=== PATIENT | male | born 1930 | race Hispanic/Latino ===

== ENCOUNTER 2017-03-13 22:18 | Inpatient (IN) | payer BC, MEDICARE ==
[2017-03-13 22:19] VITALS: BMI 25.8
--- NOTE | 2017-03-13 22:20 | ED PDOC ---
Arrival/HPI - General Time Seen by Provider: 03/13/17 22:19 Historian: Patient, EMS - History of Present Illness Narrative History of Present Illness (Text): 03/13/17 22:19 Matheus Patel is an 86 year old male, whose past medical history includes hypertension, dyslipidemia, seizure disorder, s/p NEEDLE GRADER shunt, CAD, and aortic stenosis, who presents to the Emergency department brought in by EMS for fever. As per EMS, patient had a fever with associated weakness and generalized malaise for the past few days. Patient denies any chills, chest pain, shortness of breath, nausea, vomiting, diarrhea, urinary symptoms, back pain, neck pain, headache, dizziness, or any other complaints. PMD: Dr. Vasyl Monet Time/Duration: Other (tonight) Symptom Onset: Gradual Symptom Course: Unchanged Activities at Onset: Rest, Light Context: Home Past Medical History - Provider Review Nursing Documentation Reviewed: Yes - Infectious Disease Hx of Infectious Diseases: None - Tetanus Immunization Tetanus Immunization: Unknown - Cardiac Hx Cardiac Disorders: Yes Hx Congestive Heart Failure: No Hx Hypertension: Yes - Pulmonary Hx Chronic Obstructive Pulmonary Disease (COPD): No - Neurological HX Cerebrovascular Accident: No - HEENT Hx HEENT Disorder: Yes (wears glasses) Hx Blind: No Hx Cataracts: No Hx Deafness: No Hx Difficulty Chewing: No Hx Epistaxis: No Hx Glaucoma: No Hx Macular Degeneration: No Other/Comment: has dental implants. Has dental implants - Renal Hx Renal Failure: No - Endocrine/Metabolic Hx Diabetes Mellitus Type 1: No Hx Diabetes Mellitus Type 2: No Hx Hypothyroidism: No - Hematological/Oncological Hx Blood Disorders: No Hx AIDS: No Hx Anemia: No Hx Cancer: No Hx Chemotherapy: No Hx Cirrhosis: No Hx Hemophilia: No Hx Hepatitis A: No Hx Hepatitis B: No Hx Hepatitis C: No Hx Metastasis: No Hx Shingles: No Hx Sickle Cell Disease: No Hx Unexplained Bleeding: No - Integumentary Hx Dermatological Disorder: No Hx Basal Cell Carcinoma: No Hx Eczema: No Hx Melanoma: No Hx Psoriasis: No Hx Squamous Cell Carcinoma: No - Musculoskeletal/Rheumatological 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) - Gastrointestinal Hx Gastrointestinal Disorders: Yes (frequent diarrhea) Hx Colostomy: No Hx Crohn's Disease: No Hx Diverticulitis: No Hx Gall Bladder Disease: No Hx Gastroesophageal Reflux: Yes Hx Gastrointestinal Ulcer: No Hx Ileostomy: No Hx Liver Failure: No Hx Pancreatitis: No HX Swallowing Problems: No - Genitourinary/Gynecological Hx Genitourinary Disorders: No Hx Hematuria: No Hx Incontinence: No Hx Prostate Problems: No Hx Sexually Transmitted Diseases: No Hx Urinary Tract Infection: No - Psychiatric Hx Psychophysiologic Disorder: Yes Hx Anxiety: No Hx Bipolar Disorder: No Hx Depression: Yes Hx Emotional Abuse: No Hx Hallucinations: No Hx Panic Disorder: No Hx Post Traumatic Stress Disorder: No Hx Psychosis: No Hx Physical Abuse: No Hx Schizophrenia: No Hx Sexual Abuse: No Hx Substance Use: No - Surgical History Hx Amputation: No Hx Appendectomy: No Hx Cardiac Catheterization: No Hx Cholecystectomy: No Hx Coronary Stent: No Hx Gastric Bypass Surgery: No Hx Hysterectomy: No Hx Joint Replacement: No Hx Kidney Transplant: No Hx Liver Transplant: No Hx Mastectomy: No Hx Musculoskeletal Surgery: No Hx Open Heart Surgery: No Hx Orthopedic Surgery: No Hx Splenectomy: No Hx Valve Replacement: No - Anesthesia Hx Anesthesia: Yes Hx Anesthesia Reactions: No Hx Malignant Hyperthermia: No - Suicidal Assessment Feels Threatened In Home Enviroment: No Family/Social History - Physician Review Nursing Documentation Reviewed: Yes Family/Social History: No Known Family HX Smoking Status: Former Smoker Hx Alcohol Use: No Hx Substance Use: No Allergies/Home Meds Allergies/Adverse Reactions: Allergies atorvastatin Allergy (Verified 03/13/17 22:24) FATIGUE Home Medications: Home Meds Medication Instructions Recorded Confirmed Amlodipine Besylate 2.5 mg PO DAILY 01/13/14 03/13/17 Aspirin 81 mg PO DAILY 01/13/14 03/13/17 Carbamazepine [Tegretol] 100 mg PO BID 01/13/14 03/13/17 Ezetimibe [Zetia] 10 mg PO DAILY 01/13/14 03/13/17 Rosuvastatin Calcium [Crestor] 10 mg PO DAILY 01/13/14 03/13/17 Trazodone Hydrochloride [Trazodone 50 mg PO HS 01/13/14 03/13/17 HCl] Review of Systems - Physician Review All systems were reviewed & negative as marked: Yes - Review of Systems Constitutional: Fevers Eyes: Normal ENT: Normal Respiratory: Normal. absent: SOB, Cough Cardiovascular: Normal. absent: Chest Pain Gastrointestinal: Normal. absent: Abdominal Pain, Diarrhea, Nausea, Vomiting Genitourinary Male: Normal. absent: Dysuria, Frequency, Hematuria, Urinary Output Changes Musculoskeletal: Normal. absent: Back Pain, Neck Pain Skin: Normal. absent: Rash Neurological: Other (+right-sided weakness). absent: Headache, Dizziness Endocrine: Normal Hemo/Lymphatic: Normal Psychiatric: Normal Physical Exam Vital Signs Reviewed: Yes Vital Signs Temp Pulse Resp BP Pulse Ox 03/14/17 01:57 87 18 129/55 L 95 03/14/17 01:25 98.9 F 97 H 18 115/63 97 03/14/17 00:49 104 H 17 104/46 L 96 03/13/17 22:26 102.5 F H 131 H 18 137/103 H 94 L Temperature: Febrile Blood Pressure: Normal Pulse: Regular Respiratory Rate: Normal Appearance: Positive for: Well-Appearing, Non-Toxic, Comfortable Pain Distress: None Mental Status: Positive for: Alert and Oriented X 3 - Systems Exam Head: Present: Atraumatic, Normocephalic Pupils: Present: PERRL Extroacular Muscles: Present: EOMI Conjunctiva: Present: Normal Mouth: Present: Moist Mucous Membranes Neck: Present: Normal Range of Motion Respiratory/Chest: Present: Clear to Auscultation, Good Air Exchange. No: Respiratory Distress, Accessory Muscle Use Cardiovascular: Present: Regular Rate and Rhythm, Normal S1, S2. No: Murmurs Abdomen: Present: Normal Bowel Sounds. No: Tenderness, Distention, Peritoneal Signs Back: Present: Normal Inspection Upper Extremity: Present: Normal Inspection. No: Cyanosis, Edema Lower Extremity: Present: Normal Inspection. No: Edema Neurological: Present: GCS=15, CN II-XII Intact, Speech Normal, Motor Func Grossly Intact, Normal Sensory Function, Normal Cerebellar Funct Skin: Present: Warm, Dry, Normal Color. No: Rashes Psychiatric: Present: Alert, Oriented x 3, Normal Insight, Normal Concentration Medical Decision Making ED Course and Treatment: 03/13/17 22:20 Impression: 86 year old male brought in by EMS for fever and right-sided weakness for the past few days. Plan: -- EKG -- Chest X-ray -- Labs, VBG, troponin, blood cultures -- Urinalysis, urine cultures -- Reassess and disposition Prior Visits: Notes and results from previous visits were reviewed. Progress Notes: Reviewed EKG, sinus rhythm at [address] bpm[address] Non-specific ST segment changes. 03/14/17 23:00 Reviewed radiology, Chest X-ray shows no acute processes. 03/14/17 00:15 Reviewed labs, troponin: 0.46. Pt denies any chest pain. 03/14/17 01:[address] Hammond, covering for Dr. Lara, who is aware and agrees with plan. Accepts pt in to her service. Pt will be admitted to Telemetry. 03/14/17 01:39 Reviewed repeat EKG, sinus rhythm at 83 bpm. 1st degree AV block. Non-specific ST/T wave changes. - Lab Interpretations Lab Results: 03/13/17 22:27 03/13/17 22:27 Lab Results 03/13/17 22:27: Sodium 140, Chloride 109 H, Potassium 3.9, Carbon Dioxide 21, Anion Gap 14, BUN 20, Creatinine 0.9, Est GFR ( Amer) > 60, Est GFR (Non- Af Amer) > 60, Random Glucose 169 H, Calcium 9.0, Phosphorus 2.2 L, Magnesium 1.7, Total Bilirubin 0.3, AST 24, ALT 28, Alkaline Phosphatase 89, Troponin I 0.46 H* D, Total Protein 6.7, Albumin 3.8, Globulin 2.9, Albumin/Globulin Ratio 1.3 03/13/17 22:27: pO2 169 H, VBG pH 7.44 H, VBG pCO2 31.0 L, VBG HCO3 21.1, VBG Total CO2 22.1, VBG O2 Sat (Calc) 100.4 H, VBG Base Excess -2.1 L, VBG Potassium 3.9, Sodium 138.0, Chloride 113.0 H, Glucose 182 H, Lactate 2.8 H, FiO2 21.0, Venous Blood Potassium 3.9 03/13/17 22:: PT 12.1 H, INR 1.12 H, APTT 27.3 03/13/17 22:: WBC 13.1 H, RBC 4.27, Hgb 13.6 L, Hct 39.5 L, MCV 92.5, MCH 31.9 , MCHC 34.4, RDW 13.6, Plt Count 167, MPV 9.7, Gran % 84.7 H, Lymph % (Auto) 8.7 L, Stafford % (Auto) 6.2 H, Eos % (Auto) 0.2 L, Baso % (Auto) 0.2, Gran # 11.13 H, Lymph # 1.1 L, Stafford # 0.8 H, Eos # 0.0, Baso # 0.02 I have reviewed the lab results: Yes - RAD Interpretation Radiology Orders: 03/13/17 22:27 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: ED Physician - EKG Interpretation Interpreted by ED Physician: Yes Type: 12 lead EKG - Medication Orders Current Medication Orders: Acetaminophen (Tylenol 325mg Tab) 650 mg PO Q4H PRN PRN Reason: Fever >100.5 F Sodium Chloride (Sodium Chloride 0.9%) 1,000 mls @ 150 mls/hr IV .[id number] [facility] Last Admin: 03/14/17 00:47 Dose: 150 mls/hr Discontinued Medications Acetaminophen (Tylenol 325mg Tab) 650 mg PO STAT STA Stop: 03/13/17 23:16 Last Admin: 03/13/17 23:28 Dose: 650 mg Re-Assess: MAR Pain/Vitals Document 03/14/17 00:28 RD (Rec: 03/14/17 01:24 RD [id number]) Pain Reassessment Is This A Pain ReAssessment? No Sleep Is patient sleeping during reassessment? No Presence of Pain Presence of Pain No Vitals Temperature Source Rectal Aspirin (Ecotrin) 325 mg PO STAT STA Stop: 03/14/17 01:15 Last Admin: 03/14/17 01:23 Dose: 325 mg Sodium Chloride (Sodium Chloride 0.9%) 1,000 mls @ 80 mls/hr IV .[id number] [facility] Last Admin: 03/13/17 23:28 Dose: 80 mls/hr Aztreonam (Azactam 1 Gm) 100 mls @ 100 mls/hr IVPB STAT STA PRN Reason: Protocol Stop: 03/14/17 01:26 Last Admin: 03/14/17 01:09 Dose: 100 mls/hr Vancomycin HCl (Vancomycin 1gm) 1 gm in 250 mls @ 167 mls/hr IVPB STAT STA PRN Reason: Protocol Stop: 03/14/17 01:57 Last Admin: 03/14/17 02:14 Dose: 167 mls/hr Sodium Chloride (Sodium Chloride 0.9%) 500 mls @ 999 mls/hr IV .Q31M STA Stop: 03/14/17 01:45 Last Admin: 03/14/17 01:18 Dose: 999 mls/hr - Scribe Statement The provider has reviewed the documentation as recorded by the Scribe Lisa Iraheta All medical record entries made by the Scribe were at my direction and personally dictated by me. I have reviewed the chart and agree that the record accurately reflects my personal performance of the history, physical exam, medical decision making, and the department course for this patient. I have also personally directed, reviewed, and agree with the discharge instructions and disposition. Disposition/Present on Arrival - Present on Arrival Any Indicators Present on Arrival: No History of DVT/PE: No History of Uncontrolled Diabetes: No Urinary Catheter: No History Surgical Site Infection Following: None - Disposition Have Diagnosis and Disposition been Completed?: Yes Diagnosis: Sepsis Disposition: HOSPITALIZED Disposition Time: 01:15 Condition: FAIR
[2017-03-13 23:10] LABS: ADD MANUAL DIFF? NO
[2017-03-13 23:12] LABS: VENOUS BLOOD GAS BASE EXCESS -2.1 mmol/L (0.0-2.0); VENOUS BLOOD PH 7.44 (7.32-7.43)
[2017-03-13] MEDS ORDERED: Sodium Chloride 0.9% 1,000 ML IV SCH (23:15)
[2017-03-13 23:19] LABS: BASO # 0.02 K/mm3 (0.0-2.0); BASO % 0.2 % (0.0-3.0); EOS % 0.2 % (1.5-5.0); GRAN # 11.13 (1.4-6.5); GRAN % 84.7 % (50.0-68.0); HEMATOCRIT 39.5 % (42.0-52.0); LYMPH # 1.1 (1.2-3.4); LYMPH % 8.7 % (22.0-35.0); MEAN CELL VOLUME 92.5 fL (80.0-105.0); MEAN CORPUSCULAR HEMOGLOBIN 31.9 pg (25.0-35.0); MEAN CORPUSCULAR HGB CONC 34.4 g/dl (31.0-37.0); MEAN PLATELET VOLUME 9.7 fl (7.0-11.0); MONO # 0.8 (0.1-0.6); MONO % 6.2 % (1.0-6.0); PLATELET COUNT 167 10^3/uL (120.0-450.0); RED CELL DISTRIBUTION WIDTH 13.6 % (11.5-14.5); WHITE BLOOD COUNT 13.1 10^3/ul (4.5-11.0)
[2017-03-13 23:26] LABS: INR 1.12 (0.93-1.08); PARTIAL THROMBOPLASTIN TIME 27.3 Seconds (23.7-30.8)
[2017-03-13 23:29] LABS: ALB/GLOB RATIO 1.3 (1.1-1.8); ALKALINE PHOSPHATASE 89 U/L (38-133); ALT/SGPT 28 U/L (7-56); AST/SGOT 24 U/L (15-59); BILIRUBIN,TOTAL 0.3 mg/dL (0.2-1.3); BLOOD UREA NITROGEN 20 mg/dL (7-21); CARBON DIOXIDE 21 mmol/L (21-33); CHLORIDE 109 mmol/L (98-107); GFR AFRICAN-AMERICAN > 60; GLUCOSE,RANDOM 169 mg/dL (70-110); MAGNESIUM 1.7 mg/dL (1.7-2.2); PHOSPHOROUS 2.2 mg/dL (2.5-4.5); POTASSIUM 3.9 mmol/L (3.6-5.0); SODIUM 140 mmol/L (132-148); TOTAL PROTEIN 6.7 g/dL (5.8-8.3)
[2017-03-14 00:16] LABS: TROPONIN I 0.46 ng/mL
[2017-03-14] MEDS ORDERED: Aztreonam 1 Gm in NS 100mL 100 ML IVPB STA (00:27)
[2017-03-14] MEDS ORDERED: Vancomycin 1gm in NS 250ml 1 GM/250 ML BAG IVPB STA (00:28)
[2017-03-14] MEDS ORDERED: Sodium Chloride 0.9% 1,000 ML IV SCH (00:45)
[2017-03-14] MEDS ORDERED: Aspirin 325 mg EC Tablets PO STA (01:14)
[2017-03-14] MEDS ORDERED: Sodium Chloride 0.9% 500 ML IV STA (01:15)
[2017-03-14 02:41] LABS: PH,URINE 5.5 (4.7-8.0); URINE BILIRUBIN NEGATIVE (NEGATIVE); URINE BLOOD TRACE-LYSED (NEGATIVE); URINE GLUCOSE (UA) NEGATIVE (NEGATIVE); URINE KETONE TRACE mg/dL (NEGATIVE); URINE LEUKOCYTE ESTERASE NEGATIVE Leu/uL (NEGATIVE); URINE PROTEIN TRACE mg/dL (<30 mg/dL); URINE UROBILINOGEN 0.2 E.U./dL (<1 E.U./dL)
[2017-03-14 02:56] LABS: URINE APPEARANCE SL CLOUDY (CLEAR); URINE COLOR YELLOW (YELLOW)
[2017-03-14 02:57] LABS: URINE EPITHELIAL CELLS 0 - 2 /hpf (0-5); URINE RBC 0 - 2 /hpf (0-2); URINE WBC 0 - 2 /hpf (0-6)
[2017-03-14 03:19] LABS: VENOUS BLOOD GAS BASE EXCESS -0.4 mmol/L (0.0-2.0); VENOUS BLOOD PH 7.36 (7.32-7.43)
--- NOTE | 2017-03-14 08:05 | RAD ---
HISTORY: Sepsis Patient COMPARISON: 03/24/2015 FINDINGS: LUNGS: No active pulmonary disease. PLEURA: No significant pleural effusion identified, no pneumothorax apparent. CARDIOVASCULAR: Normal. OSSEOUS STRUCTURES: No significant abnormalities. VISUALIZED UPPER ABDOMEN: Normal. OTHER FINDINGS: None. IMPRESSION: No active disease.
[2017-03-14] MEDS: Enoxaparin 80 mg Syringe SC SCH ×2 (08:35→21:22)
--- NOTE | 2017-03-14 08:52 | CON ---
DATE: 03/14/2017 INDICATIONS: Weakness, abnormal EKG, Mobitz type 1 second degree AV block, positive troponin. HISTORY OF PRESENT ILLNESS: This is an 86-year-old man admitted this morning after he came to the Emergency Room complaining of weakness and fever. Symptoms have been present for several days and are getting worse. He did not describe chest pain, shortness of breath or syncope. There was no palpitation, edema, claudication, orthopnea, PND, rigor, sweats, cough, sputum production, hemoptysis, abdominal pain, nausea, vomiting, diarrhea, constipation, melena. PAST MEDICAL HISTORY: Notable for prior syncopes including in 03/2015 when he was admitted and underwent an evaluation. An echocardiogram at that time demonstrated moderately severe aortic stenosis. 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 There is no history of rheumatic fever, myocardial infarction, angina , congestive heart failure or gout. There is no history of diabetes. MEDICATIONS: At the time of admission include Norvasc, aspirin, Crestor, Tegretol, trazodone, Zetia. ALLERGIES: HE NOTES AN ALLERGY TO LIPITOR. SOCIAL HISTORY: He lives at home with his . He is not very ambulatory. He does not smoke. He does not drink. FAMILY HISTORY: Noncontributory. REVIEW OF SYSTEMS: Ten point review of systems otherwise unremarkable except as noted above. PHYSICAL EXAMINATION: GENERAL: He is a well-developed elderly male lying in bed on telemetry in no acute distress. VITAL SIGNS: Notable for sinus rhythm. There have been episodes of Mobitz type 1 second degree AV block detected. He had a temperature of 102.5, currently 98.8; blood pressure 118/61, respirations 18-20, O2 sat 94-96% on room air and nasal cannula. HEENT: Reveals no neck vein distention, thyromegaly, or carotid bruits. Mucous membranes are moist. Conjunctivae are pink. NECK: Supple. LUNG BOLAÑOS: A few rhonchi. HEART: Revealed normal first and second heart sounds. There is a II/ systolic ejection murmur heard in the aortic space along the left sternal border. PMI is not displaced. ABDOMEN: Soft. Bowel sounds are present. No mass, organomegaly, tenderness, rebound, or guarding. No CVA tenderness. No palpable abdominal aortic aneurysm. EXTREMITIES: Revealed no cyanosis, clubbing, or edema. NEUROLOGIC: He was awake, alert and oriented. SKIN: Warm and dry. No rash or cellulitis. PSYCHIATRIC: Normal as to mood and affect. LABORATORY AND IMAGING: A chest x-ray is not interpreted yet; I see no evidence of congestive heart failure, infiltrate or effusion. EKGs demonstrated sinus tachycardia with ST-T wave changes. A second EKG sinus rhythm with Mobitz 1 second degree AV block. White count elevated at 13,100, hemoglobin 13.6, hematocrit 39.5, platelet count 167,000. PT, PTT, INR are unremarkable. Blood gases are noted. Electrolytes, BUN, creatinine, blood sugar unremarkable. Magnesium 1.7. LFTs unremarkable. Troponin 0.46 which is elevated. Urinalysis is noted. IMPRESSION: The patient is an 86-year-old man admitted with weakness and fever with a leukocytosis, Mobitz 1 second degree atrioventricular block and positive troponins. There was no definite chest pain or shortness of breath. At this time, I agree with current plans. He is on telemetry. I would cut down his IV fluids at this point. I will get another troponin and EKG today. I will order an echocardiogram. He will be on aspirin. I will add Lovenox. I will not give him a beta shona given his Mobitz 1 second degree heart block. He has been cultured. He is getting antibiotics. I will review his old records. I will order a current echocardiogram. I will order a TSH. We will monitor I's and O's. We will check stool for occult blood. He can be out of bed to a chair. We will check orthostatic vital signs. I will follow along with you. I will make additional recommendations based on his clinical course. Overall, a conservative course of cardiac care is anticipated. Lucho Pathak MD cc: [id number] TT: 03/14/2017 08:51:21 Confirmation # [id number] Dictation # [id number] yony CARCAMO
--- NOTE | 2017-03-14 10:44 | CARD ---
APPROVED REPORT EKG Measurement Heart [id number] <Conclusion> possibly A flutter with 2:1 conduction. Left axis deviation Left ventricular hypertrophy with QRS widening and repolarization abnormality Inferior infarct, age undetermined Abnormal ECG
[2017-03-14] MEDS: ROSUVASTATIN CALCIUM 10 MG PO SCH (10:48)
[2017-03-14] MEDS: carBAMazepine Chew Tab 100 MG Chew Tab PO SCH ×2 (10:48→18:12)
[2017-03-14] MEDS ORDERED: Vancomycin 1gm in NS 250ml 1 GM/250 ML BAG IVPB SCH (13:15)
[2017-03-14] MEDS: Meropenem 1g/NS 100mL IVPB 1 GM/100 ML PIGGYBACK IVPB SCH ×2 (13:56→21:23)
--- NOTE | 2017-03-14 14:21 | CARD ---
APPROVED REPORT EKG Measurement Heart [id number] <Conclusion> Sinus rhythm with 1st degree AV block with premature atrial complexes Left ventricular hypertrophy with repolarization abnormality Inferior infarct, age undetermined Abnormal ECG
[2017-03-14 14:29] LABS: PH,URINE 5.5 (4.7-8.0); URINE APPEARANCE CLEAR (CLEAR); URINE BILIRUBIN NEGATIVE (NEGATIVE); URINE BLOOD TRACE-LYSED (NEGATIVE); URINE COLOR YELLOW (YELLOW); URINE GLUCOSE (UA) NEGATIVE (NEGATIVE); URINE KETONE NEGATIVE (NEGATIVE); URINE LEUKOCYTE ESTERASE NEGATIVE Leu/uL (NEGATIVE); URINE PROTEIN NEGATIVE mg/dL (<30 mg/dL); URINE UROBILINOGEN 0.2 E.U./dL (<1 E.U./dL)
--- NOTE | 2017-03-14 14:33 | CARD ---
APPROVED REPORT EKG Measurement Heart [id number] <Conclusion> Sinus rhythm with marked sinus arrhythmia with 1st degree AV block Left ventricular hypertrophy with repolarization abnormality Inferior infarct, age undetermined Abnormal ECG
[2017-03-14 14:47] LABS: URINE BACTERIA TRACE (NEG); URINE RBC 0 - 2 /hpf (0-2); URINE WBC 0 - 2 /hpf (0-6)
--- NOTE | 2017-03-14 17:55 | CON ---
DATE: 03/14/2017 The patient is seen today in room 261, bed 2. CHIEF COMPLAINT: The patient had fevers and weakness x 1 day duration. HISTORY OF PRESENT ILLNESS: This is an 86-year-old white male who has a past medical history of hype rtension, dyslipidemia, seizures, coronary artery disease, aortic stenosis, intracerebral bleed resul ting in BUSINESS SUPPORT LIAISON shunt placement 17 years ago, who was admitted through the Emergency Room because of weakn ess and he had a fever of 104 in the Emergency Room and here it was up to 102. REVIEW OF SYSTEMS: Denies any headaches or blurred vision, no neck pain, no chest pain. There is no shortness of breath or cough. No nausea, no vomiting, no abdominal pain, no dysuria or frequency an d no complaints other than the headaches, no muscle aches. No joint pains. PAST MEDICAL HISTORY: Intracerebral bleed, hypertension, dyslipidemia, seizures, aortic stenosis, co ronary artery disease. PAST SURGICAL HISTORY: Significant for BUSINESS SUPPORT LIAISON shunt. ALLERGIES: THE PATIENT IS ALLERGIC TO ATORVASTATIN. MEDICATIONS: At home include the patient to be on Tegretol, aspirin, amlodipine, and Crestor, and tr azodone. PHYSICAL EXAMINATION: GENERAL: The patient lives with his , has not been in the hospital for almost over 2 years. VITAL SIGNS: On exam, he is in bed with a temperature of 98, T-max is 102.5, respiratory rate of 20 and heart rate of 66. In the Emergency Room, it was up to 131 yesterday with a blood pressure of 118 /60. It was down to 104/46. HEENT: Unremarkable. NECK: Supple. LUNGS: Have decreased breath sounds. HEART: Normal S1, S2. ABDOMEN: Soft, nondistended and nontender, no organomegaly, no rebound, no guarding. SKIN: Intact. LABORATORY EXAMINATION: Reveals a white count of 13,100, hemoglobin of 13, platelets of 167. Coagul ation is noted. Chemistries reveal the BUN of 20, creatinine of 0.9. The patient has elevated tropo ant of 0.46 and 0.55. Urinalysis is unremarkable with 0-2 WBCs. Microbiology is pending. IMAGING: Chest x-ray is negative. Dr. Lucho Pathak's consultation is reviewed. The Emergency Room chart is orquidea farmer. The patient's EKG is reviewed and it shows a QTC of 528 and possible atrial flutter with 2: 1 conduction, left axis deviation, left ventricular hypertrophy with QRS widening on repolarization, inferior infarct, age undetermined and abnormal EKG. ASSESSMENT AND PLAN: This is an 86-year-old male with hypertension, dyslipidemia, seizures, aortic s tenosis, coronary artery disease, intracerebral bleed resulting in a BUSINESS SUPPORT LIAISON shunt placement 17 years ago, now admitted with a temperature of 102.5, heart rate of 131 and white count of 13,000, negative with a negative urinalysis, negative chest x-ray. Systemic inflammatory response syndrome with a non-ST elevation myocardial infarction. Must rule out gastrointestinal versus genitourinary versus central nervous system shunt infection. We will check on the urine cultures, blood cultures. We will order a procalcitonin, a CAT scan of the abdomen and pelvis. We will order a hemoglobin A1c and start the patient on vancomycin, meropenem pending joseph cu ltures. The patient may need cerebrospinal fluid evaluation if all the initial cultures are negative , no obvious source and will follow closely with you. Case discussed with the patient's daughter at the bedside and patient's at the bedside at length. Rohit Carroll MD cc: [id number] TT: 03/14/2017 17:55:18 Confirmation # [id number] Dictation # [id number] ln
--- NOTE | 2017-03-14 22:48 | CP.PCM.HP ---
History of Present Illness - History of Present Illness History of Present Illness: Mr. Patel is a 86 year old male, presented to ED with fever. He has for few days. No chills, no rigors. No cough. He has history of seizure disorder. None recent. H/O hyperlipidemia on crestor. H/O CAD, troponins elevated now. No chest pain. History of aortic stenosis. No shortness of breath. H Blood counts showed leukocytosis, mild anemia. Present on Admission - Present on Admission Any Indicators Present on Admission: No Review of Systems - Constitutional Constitutional: As Per HPI, Fatigue, Fever, Malaise - EENT Eyes: absent: As Per HPI, Blind Spots, Blurred Vision, Change in Vision, Decreased Night Vision, Diplopia, Discharge, Dry Eye, Exophthalmos, Floaters, Irritation, Itchy Eyes, Loss of Peripheral Vision, Pain, Photophobia, Requires Corrective Lenses, Sees Flashes, Spots in Vision, Tunnel Vision, Other Visual Disturbances, Loss of Vision, Other Nose/Mouth/Throat: absent: As Per HPI, Epistaxis, Nasal Congestion, Nasal Discharge, Nasal Obstruction, Nasal Trauma, Nose Pain, Post Nasal Drip, Sinus Pain, Sinus Pressure, Bleeding Gums, Change in Voice, Dental Pain, Dry Mouth, Dysphagia, Halitosis, Hoarsness, Lip Swelling, Mouth Lesions, Mouth Pain, Odynophagia, Sore Throat, Throat Swelling, Tongue Swelling, Facial Pain, Neck Pain, Neck Mass, Other - Cardiovascular Cardiovascular: Slow Heart Rate - Respiratory Respiratory: absent: As Per HPI, Cough, Dyspnea, Hemoptysis, Dyspnea on Exertion , Wheezing, Snoring, Stridor, Pain on Inspiration, Chest Congestion, Excessive Mucous Production, Change in Mucous Color, Pain with Coughing, Other - Gastrointestinal Gastrointestinal: absent: As Per HPI, Abdominal Pain, Belching, Bloating, Change in Bowel Habits, Change in Stool Character, Coffee Ground Emesis, Constipation, Cramping, Diarrhea, Dyspepsia, Dysphagia, Early Satiety, Excessive Flatus, Fecal Incontinence, Heartburn, Hematemesis, Hematochezia, Loose Stools, Melena, Nausea, Odynophagia, Temesmus, Vomiting, Other - Genitourinary Genitourinary: absent: As Per HPI, Change in Urinary Stream, Difficulty Urinating, Dysuria, Flank Pain, Hematuria, Pyuria, Nocturia, Urinary Incontinence, Urinary Frequency, Urinary Hesitance, Urinary Urgency, Voiding Freq/Small Amts, Freq UTI, Hx Renal/Bladder Calculi, Hx /Renal Surgery, Bladder Distension, Other - Musculoskeletal Musculoskeletal: absent: As Per HPI, Abnormal Gait, Arthralgias, Atrophy, Back Pain, Deformity, Joint Swelling, Limited Range of Motion, Loss of Height, Muscle Cramps, Muscle Weakness, Myalgias, Neck Pain, Numbness, Radiating Pain into Limb, Stiffness, Tingling, Other - Integumentary Integumentary: absent: As Per HPI, Acne, Alopecia, Bleeding Lesions, Change in Hair, Change in Nails, Change in Pigmentation, Changing Lesions, Dry Skin, Erythema, Furuncle, Hirsutism, Lesions, New Lesions, Non-Healing Lesions, Photosensitivity, Pruritus, Rash, Skin Pain, Skin Ulcer, Sores, Striae, Swelling , Unusual Bruising, Wounds, Jaundice, Other - Neurological Neurological: absent: As Per HPI, Abnormal Gait, Abnormal Hearing, Abnormal Movements, Abnormal Speech, Behavioral Changes, Burning Sensations, Confusion, Convulsions, Disequilibrium, Dizziness, Numbness, Focal Weakness, Frequent Falls , Headaches, Lack of Coordination, Loss of Vision, Memory Loss, Paresthesias, Radicular Pain, Restless Legs, Sensory Deficit, Syncope, Tingling, Tremor, Vertigo, Weakness, Other Visual Disturbances, Other - Endocrine Endocrine: absent: As Per HPI, Change in Body Appearance, Change in Libido, Cold Intolorance, Deepening of Voice, Excessive Sweating, Fatigue, Flushing, Heat Intolorance, Increase in Ring/Shoe/Hat Size, Palpitations, Polydipsia, Polyphagia, Polyuria, Other - Hematologic/Lymphatic Hematologic: As Per HPI Past Patient History - Infectious Disease Hx of Infectious Diseases: None - Tetanus Immunizations Tetanus Immunization: Unknown - Past Medical History & Family History Past Medical History?: Yes Past Family History: Reviewed and not pertinent - Past Social History Smoking Status: Former Smoker - CARDIAC Hx Cardiac Disorders: Yes Hx Congestive Heart Failure: No Hx Hypertension: Yes - PULMONARY Hx Chronic Obstructive Pulmonary Disease (COPD): No - NEUROLOGICAL HX Cerebrovascular Accident: No - HEENT Hx HEENT Problems: Yes (wears glasses) Hx Blind: No Hx Cataracts: No Hx Deafness: No Hx Difficulty Chewing: No Hx Epistaxis: No Hx Glaucoma: No Hx Macular Degeneration: No Other/Comment: has dental implants. Has dental implants - RENAL Hx Renal Failure: No - ENDOCRINE/METABOLIC Hx Diabetes Mellitus Type 1: No Hx Diabetes Mellitus Type 2: No Hx Hypothyroidism: No - HEMATOLOGICAL/ONCOLOGICAL Hx Blood Disorders: No Hx AIDS: No Hx Anemia: No Hx Cancer: No Hx Chemotherapy: No Hx Cirrhosis: No Hx Hemophilia: No Hx Hepatitis A: No Hx Hepatitis B: No Hx Hepatitis C: No Hx Metastesis: No Hx Shingles: No Hx Sickle Cell Disease: No Hx Unexplained Bleeding: No - INTEGUMENTARY Hx Dermatological Problems: No Hx Basil Cell: No Hx Eczema: No Hx Melanoma: No Hx Psoriasis: No Hx Squamous Cell: No - MUSCULOSKELETAL/RHEUMATOLOGICAL 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) - GASTROINTESTINAL Hx Gastrointestinal Disorders: Yes (frequent diarrhea) Hx Colostomy: No Hx Crohn's Disease: No Hx Diverticulitis: No Hx Gall Bladder Disease: No Hx Gastroesophageal Reflux: Yes Hx Ileostomy: No Hx Liver Failure: No Hx Pancreatitis: No HX Swallowing Problems: No - GENITOURINARY/GYNECOLOGICAL Hx Genitourinary Disorders: No Hx Hematuria: No Hx Incontinence: No Hx Prostate Problems: No Hx Sexually Transmitted Disorders: No Hx Urinary Tract Infection: No - PSYCHIATRIC Hx Psychophysiologic Disorder: Yes Hx Anxiety: No Hx Bipolar Disorder: No Hx Depression: Yes Hx Emotional Abuse: No Hx Hallucinations: No Hx Panic Symptoms: No Hx Post Traumatic Stress Disorder: No Hx Psychosis: No Hx Physical Abuse: No Hx Schizophrenia: No Hx Sexual Abuse: No Hx Substance Use: No - SURGICAL HISTORY Hx Amputation: No Hx Appendectomy: No Hx Cardiac Catheterization: No Hx Cholecystectomy: No Hx Coronary Stent: No Hx Gastric Bypass Surgery: No Hx Hysterectomy: No Hx Joint Replacement: No Hx Kidney Transplant: No Hx Liver Transplant: No Hx Mastectomy: No Hx Musculoskeletal Surgery: No Hx Open Heart Surgery: No Hx Orthopedic Surgery: No Hx Splenectomy: No Hx Valve Replacement: No - ANESTHESIA Hx Anesthesia: Yes Hx Anesthesia Reactions: No Hx Malignant Hyperthermia: No Meds Allergies/Adverse Reactions: Allergies Allergy/AdvReac Type Severity Reaction Status Date / Time atorvastatin Allergy FATIGUE Verified 03/13/17 22:24 Physical Exam - Constitutional Appears: Well, Non-toxic - Head Exam Head Exam: ATRAUMATIC, NORMAL INSPECTION, NORMOCEPHALIC - Eye Exam Eye Exam: Normal appearance Pupil Exam: NORMAL ACCOMODATION - ENT Exam ENT Exam: Mucous Membranes Moist, Normal Exam - Neck Exam Neck exam: Positive for: Normal Inspection - Respiratory Exam Respiratory Exam: Clear to Auscultation Bilateral, NORMAL BREATHING PATTERN - Cardiovascular Exam Cardiovascular Exam: REGULAR RHYTHM, +S1, +S2 - GI/Abdominal Exam GI & Abdominal Exam: Normal Bowel Sounds, Soft - Extremities Exam Extremities exam: Positive for: normal inspection - Back Exam Back exam: NORMAL INSPECTION - Psychiatric Exam Psychiatric exam: Normal Affect, Normal Mood - Skin Skin Exam: Normal Color, Warm Results - Vital Signs Recent Vital Signs: Last Vital Signs Temp 98.7 F 03/14/17 12:00 Pulse 78 03/14/17 18:00 Resp 19 03/14/17 12:00 BP 132/68 03/14/17 12:00 Pulse Ox 96 03/14/17 06:00 - Labs Result Diagrams: 03/13/17 22:27 03/13/17 22:27 Labs: Laboratory Results - last 24 hr 03/14/17 03/14/17 03/14/17 02:15 02:45 09:00 pO2 29 L VBG pH 7.36 VBG pCO2 45.0 VBG HCO3 25.4 VBG Total CO2 26.8 VBG O2 Sat (Calc) 63.7 VBG Base Excess -0.4 L VBG Potassium 4.5 Sodium 141.0 Chloride 112.0 H Glucose 117 H Lactate 1.9 FiO2 21.0 Hemoglobin A1c Troponin I 0.55 H* Procalcitonin Venous Blood Potassium 4.5 Urine Color Yellow Urine Appearance Sl cloudy Urine pH 5.5 Ur Specific [place] 1.025 Urine Protein Trace H Urine Glucose (UA) Negative Urine Ketones Trace H Urine Blood Trace-lysed H Urine Nitrate Negative Urine Bilirubin Negative Urine Urobilinogen 0.2 Ur Leukocyte Esterase Negative Urine RBC 0 - 2 Urine WBC 0 - 2 Ur Epithelial Cells 0 - 2 Urine Bacteria 03/14/17 03/14/17 03/14/17 13:48 13:50 14:20 pO2 VBG pH VBG pCO2 VBG HCO3 VBG Total CO2 VBG O2 Sat (Calc) VBG Base Excess VBG Potassium Sodium Chloride Glucose Lactate FiO2 Hemoglobin A1c 5.3 Troponin I Procalcitonin 0.25 Venous Blood Potassium Urine Color Yellow Urine Appearance Clear Urine pH 5.5 Ur Specific [place] <= 1.005 Urine Protein Negative Urine Glucose (UA) Negative Urine Ketones Negative Urine Blood Trace-lysed H Urine Nitrate Negative Urine Bilirubin Negative Urine Urobilinogen 0.2 Ur Leukocyte Esterase Negative Urine RBC 0 - 2 Urine WBC 0 - 2 Ur Epithelial Cells Urine Bacteria Trace Assessment & Plan - Assessment and Plan (Free Text) Assessment: 1. Fever 2. NSTEMI 3. Seizure disorder 4. leukocytosis 5. Anemia Plan : admit tele. 2. Cardiolody consult with Dr. Pathak. 3. Serial trops monitoring. 4. Lovenox 80 mg SQ BID. 5. Blood cultures urine culture. ID consult Dr. Mckee. IV antibiotics meropenem, Vanco. 6. Mild anemia- iron studies, B12 folate. 7. Leukocytosis- related to fever, infection, CXR - no infiltrate. 8. Continue tegretol 100 mg BID. 9. Continue cardiac meds- aspirin 81 mg, crestor 10 mg daily - Date & Time Date: 03/14/17 Time: 11:00
[2017-03-14] MEDS: Vancomycin 1gm in NS 250ml 1 GM/250 ML BAG IVPB SCH (23:43)
[2017-03-15] MEDS: Meropenem 1g/NS 100mL IVPB 1 GM/100 ML PIGGYBACK IVPB SCH ×3 (06:54→21:06)
[2017-03-15] MEDS ORDERED: Barium Sulfate Susp 2.1% w/v, 2.0% w/w 450 mL Bottle PO ONE (07:06)
--- NOTE | 2017-03-15 08:04 | PN ---
DATE: 03/15/2017 SUBJECTIVE: This is a patient with no complaints of any chest pain, shortness of breath, no headaches. PHYSICAL EXAMINATION: VITAL SIGNS: Temperature is 98.2, pulse of 96, blood pressure 160/86, respirations 20, O2 saturation 96%. GENERAL: The patient comfortable, in no acute distress. HEENT: Anicteric sclerae. Moist mucosa. NECK: No JVD or adenopathy. CARDIAC: S1/S2. No murmurs. No rubs. Regular. RESPIRATORY: Clear to auscultation bilaterally. No wheezes, rales, or rhonchi. Good air entry. ABDOMEN: Bowel sounds are positive, soft, nontender, and nondistended. EXTREMITIES: No edema. Has 1+ pulses. ASSESSMENT: 1. Sepsis. 2. Fever. 3. Hypertension. 4. Dyslipidemia. 5. Seizures. 6. Aortic stenosis. 7. Coronary artery disease. 8. Ventriculoperitoneal shunt. 9. [id number] myocardial infarction. PLAN: The patient is currently comfortable. He did have an elevation of his troponins. Dr. Fall has been consulted and the patient has been seen. The patient is on Zetia for his dyslipidemia. An echo has been ordered. The patient is on carbamazepine for seizures. He is on Lovenox for anticoagulation for the [id number] [place]. Blood cultures have been negative. He is being followed by Dr. Carroll as well. The patient had a CT of the abdomen and pelvis that has been ordered. He is going to continue on his trazodone. He is receiving Crestor but I believe it is not formulary; he may bring it in from home. The patient is not febrile at this point. Stu Lara MD cc: [id number] TT: 03/15/2017 08:03:27 Confirmation # [id number] Dictation # [id number] yony CARCAMO
[2017-03-15] MEDS: ROSUVASTATIN CALCIUM 10 MG PO SCH (09:13)
[2017-03-15] MEDS: Enoxaparin 80 mg Syringe SC SCH ×2 (09:15→21:07)
[2017-03-15 10:21] LABS: ADD MANUAL DIFF? NO
[2017-03-15 10:26] LABS: BASO # 0.03 K/mm3 (0.0-2.0); BASO % 0.5 % (0.0-3.0); EOS # 0.2 (0.0-0.7); EOS % 3.3 % (1.5-5.0); GRAN # 3.75 (1.4-6.5); GRAN % 56.2 % (50.0-68.0); HEMATOCRIT 40.2 % (42.0-52.0); LYMPH # 1.7 (1.2-3.4); MEAN CELL VOLUME 93.3 fL (80.0-105.0); MEAN CORPUSCULAR HEMOGLOBIN 31.8 pg (25.0-35.0); MEAN CORPUSCULAR HGB CONC 34.1 g/dl (31.0-37.0); MEAN PLATELET VOLUME 10.2 fl (7.0-11.0); MONO # 0.9 (0.1-0.6); PLATELET COUNT 174 10^3/uL (120.0-450.0); RED CELL DISTRIBUTION WIDTH 13.7 % (11.5-14.5); WHITE BLOOD COUNT 6.7 10^3/ul (4.5-11.0)
[2017-03-15 10:55] LABS: ALB/GLOB RATIO 1.2 (1.1-1.8); ALKALINE PHOSPHATASE 79 U/L (38-133); ALT/SGPT 31 U/L (7-56); AST/SGOT 23 U/L (15-59); BILIRUBIN,TOTAL 0.4 mg/dL (0.2-1.3); BLOOD UREA NITROGEN 13 mg/dL (7-21); CALCIUM 8.5 mg/dL (8.4-10.5); CARBON DIOXIDE 22 mmol/L (21-33); CHLORIDE 111 mmol/L (98-107); GFR AFRICAN-AMERICAN > 60; GLUCOSE,RANDOM 90 mg/dL (70-110); POTASSIUM 3.8 mmol/L (3.6-5.0); SODIUM 141 mmol/L (132-148); TOTAL PROTEIN 6.3 g/dL (5.8-8.3)
--- NOTE | 2017-03-15 11:47 | CP.PCM.PN ---
Subjective - Date & Time of Evaluation Date of Evaluation: 03/15/17 Time of Evaluation: 09:50 - Subjective Subjective: Comfortable, no headache currently, no fevers overnight. Objective - Vital Signs/Intake and Output Vital Signs (last 24 hours): Temp Pulse Resp BP Pulse Ox 98.4 F 99 H 18 170/85 H 96 03/15/17 06:00 03/15/17 06:00 03/15/17 06:00 03/15/17 06:00 03/15/17 06:00 Intake and Output: 03/15/17 03/15/17 06:59 18:59 Intake Total 180 Output Total 700 Balance -520 - Medications Medications: Current Medications Acetaminophen (Tylenol 325mg Tab) 650 mg PO Q4H PRN PRN Reason: Fever >100.5 F Amlodipine Besylate (Norvasc) 2.5 mg PO DAILY [facility] Last Admin: 03/14/17 10:47 Dose: 2.5 mg Aspirin (Aspirin Chewable) 81 mg PO DAILY [facility] Last Admin: 03/14/17 10:48 Dose: 81 mg Carbamazepine (Tegretol) 100 mg PO BID [facility] Last Admin: 03/14/17 18:12 Dose: 100 mg Clopidogrel Bisulfate (Plavix) 75 mg PO DAILY [facility] Ezetimibe (Zetia) 10 mg PO DAILY [facility] Last Admin: 03/14/17 10:48 Dose: 10 mg Enoxaparin Sodium (Lovenox) 80 mg SC Q12H [facility] PRN Reason: Protocol Last Admin: 03/15/17 09:15 Dose: 80 mg Meropenem 1g/NS 100mL IVPB (Meropenem 1g/Ns 100ml Ivpb) 1 gm in 100 mls @ 100 mls/hr IVPB Q8 [facility] PRN Reason: Protocol Stop: 03/24/17 14:01 Last Admin: 03/15/17 06:54 Dose: 100 mls/hr Vancomycin HCl (Vancomycin 1gm) 1 gm in 250 mls @ 167 mls/hr IVPB 0000,1200 [facility] PRN Reason: Protocol Last Admin: 03/14/17 23:43 Dose: 167 mls/hr Rosuvastatin Calcium [Crestor] 10 Mg ( Home Med) 10 mg PO DAILY [facility] Last Admin: 03/15/17 09:13 Dose: Not Given Trazodone HCl (Desyrel) 50 mg PO HS [facility] Last Admin: 03/14/17 21:23 Dose: 50 mg - Labs Labs: 03/15/17 10:00 03/15/17 09:30 PT 12.1 Seconds (9.9-11.8) H 03/13/17 22:27 INR 1.12 (0.93-1.08) H 03/13/17 22:27 APTT 27.3 Seconds (23.7-30.8) 03/13/17 22:27 - Constitutional Appears: Non-toxic, No Acute Distress - Head Exam Head Exam: NORMAL INSPECTION - Neck Exam Neck Exam: absent: Meningismus - Respiratory Exam Respiratory Exam: Decreased Breath Sounds - Cardiovascular Exam Cardiovascular Exam: +S1, +S2 - GI/Abdominal Exam GI & Abdominal Exam: Soft. absent: Tenderness Assessment and Plan - Assessment and Plan (Free Text) Plan: Assessment systemic inflammatory response syndrome probably related to Non-STEMI, need to rule out intra-abdominal infection, R/O infection related to [employer] shunt HTN dyslipidemia aortic stenosis history of intracranial hemorrhage S/P [employer] shunt placement 17 years ago CAD Plan will continue Vancomycin and Merrem day 2; blood cx are negative, urine cx only showing Corynebacterium which is a probable contaminant; awaiting CT of the abdomen and pelvis; also ordered MRI brain to evaluate [employer] shunt (if there is malfunction, may see enlarged ventricles) will continue to monitor clinically
[2017-03-15] MEDS: carBAMazepine Chew Tab 100 MG Chew Tab PO SCH ×2 (12:06→18:20)
--- NOTE | 2017-03-15 12:41 | CT ---
PROCEDURE: CT Abdomen and Pelvis without intravenous contrast HISTORY: fever of 102 COMPARISON: None. TECHNIQUE: Without contrast.. Contrast Dose: Radiation dose: Total exam DLP = 811 mGy-cm. This CT exam was performed using one or more of the following dose reduction techniques: Automated exposure control, adjustment of the mA and/or kV according to patient size, and/or use of iterative reconstruction technique. FINDINGS: LOWER THORAX: Bibasilar infiltrates and small effusions. LIVER: Unremarkable. No gross lesion or ductal dilatation. GALLBLADDER AND BILE DUCTS: Gallstones PANCREAS: Unremarkable. No gross lesion or ductal dilatation. SPLEEN: Unremarkable. ADRENALS: Unremarkable. No mass. KIDNEYS AND URETERS: Unremarkable. No hydronephrosis. No solid mass. VASCULATURE: Unremarkable. No aortic aneurysm. BOWEL: Unremarkable. No obstruction. No gross mural thickening. Diverticulosis APPENDIX: Unremarkable. Normal appendix. PERITONEUM: Unremarkable. No free fluid. No free air. LYMPH NODES: Unremarkable. No enlarged lymph nodes. BLADDER: Unremarkable. REPRODUCTIVE: Unremarkable. BONES: No acute fracture. OTHER FINDINGS: Peritoneal catheter IMPRESSION: Small bibasilar infiltrates. Small pleural effusions No acute intra-abdominal findings.
[2017-03-15] MEDS: Vancomycin 1gm in NS 250ml 1 GM/250 ML BAG IVPB SCH (13:06)
[2017-03-15 18:26] VITALS: RESP 20
[2017-03-15] MEDS ORDERED: CRESTOR 10 MG PO SCH (20:30)
[2017-03-16] MEDS: Vancomycin 1gm in NS 250ml 1 GM/250 ML BAG IVPB SCH ×2 (01:48→12:40)
[2017-03-16] MEDS: Meropenem 1g/NS 100mL IVPB 1 GM/100 ML PIGGYBACK IVPB SCH ×2 (05:32→13:41)
[2017-03-16] MEDS: Enoxaparin 80 mg Syringe SC SCH ×2 (08:40→20:30)
--- NOTE | 2017-03-16 08:41 | PN ---
DATE: 03/16/2017 SUBJECTIVE: The patient has no complaints of any chest pain, no shortness of breath, no headaches, n o dizziness. PHYSICAL EXAMINATION: VITAL SIGNS: Temperature is 98.3, pulse of 83, blood pressure 164/84, respirations 20, O2 saturation 96%. GENERAL: The patient comfortable, in no acute distress. HEENT: Anicteric sclerae. Moist mucosa. NECK: No JVD or adenopathy. CARDIAC: S1/S2. No murmurs. No rubs. Regular. RESPIRATORY: Clear to auscultation bilaterally. No wheezes, rales, or rhonchi. Good air entry. ABDOMEN: Bowel sounds are positive, soft, nontender, and nondistended. EXTREMITIES: No edema. Has 1+ pulses. ASSESSMENT: 1. Sepsis. 2. Fever, improved. 3. Hypertension. 4. Non-ST elevation myocardial infarction. 5. Aortic stenosis. 6. Seizures. 7. Ventriculoperitoneal shunt. 8. Coronary artery disease. 9. Hypertension. PLAN: The patient is on aspirin. This will be continued. He has blood cultures that are negative. Urine culture shows corynebacterium, which is most likely a contaminant. An echo has been ordered a nd that is pending. The patient also had a CT scan of the abdomen and pelvis done that did show some bibasilar atelectasis, bibasilar infiltrates, small pleural effusion. This may be the etiology of t he sepsis. The patient is on trazodone. This will be continued. He is going to be on Plavix. He i s on amlodipine for hypertension. Dr. Pathak has been following the patient. Conservative managemen t is going to be done for the non-ST elevation myocardial infarction. The patient has been started o n Plavix. He remains on Lovenox. He is going to be on meropenem for antibiotics. He is on carbamaz epine for his seizures. He has an MRI that has been ordered to evaluate his ventriculoperitoneal morteza nt. Stu Lara MD cc: [id number] TT: 03/16/2017 08:41:15 Confirmation # [id number] Dictation # [id number]
--- NOTE | 2017-03-16 09:40 | CARD ---
APPROVED REPORT EXAM: Two-dimensional and M-mode echocardiogram with Doppler and color Doppler. INDICATION / + TROPONIN 2D DIMENSIONS Left Atrium (2D)5.2 (1.6-4.0cm)IVSd1.1 (0.7-1.1cm) LVDd5.5 (3.9-5.9cm)LVOT Diameter2.9 (1.8-2.4cm) PWd1.1 (0.7-1.1cm)LVDs4.1 (2.5-4.0cm) FS (%) 25.6 %LVEF (%)50.1 (>50%) M-Mode DIMENSIONS Aortic Root3.80 (2.2-3.7cm)Aortic Cusp Exc.0.80 (1.5-2.0cm) Aortic Valve AoV Peak Xczkqbed938.0cm/sAoV VTI78.3cmAO Peak GR.63mmHg LVOT Peak Wwocdfij72.1cm/sLVOT VTI13.70cmAO Mean GR.30mmHg MARK (VMAX)0.05kk1IJN (VTI)1.16cm2 Mitral Valve E/A ratio0.0 TDI E/Lateral E'0.0E/Medial E'0.0 Pulmonary Valve PV Peak Bbymjnbq24.4cm/sPV Peak Grad.3mmHg Tricuspid Valve TR Peak Vaqhojqk098om/sRAP [id number] Peak Gr.55mmHg [id number] LEFT VENTRICLE The left ventricle is normal size. There is mild concentric left ventricular hypertrophy. The left ventricular function is normal. The left ventricular ejection fraction is within the normal range. There is normal LV segmental wall motion. RIGHT VENTRICLE The right ventricle is normal size. The right ventricular systolic function is normal. ATRIA The left atrium is severely dilated. The right atrium is mildly dilated. The interatrial septum is intact with no evidence for an atrial septal defect. AORTIC VALVE The aortic valve is severely calcified. There is mild aortic regurgitation. There is moderate to severe valvular aortic stenosis. MITRAL VALVE Mitral annular calcification is moderate. Mitral regurgitation is moderate. TRICUSPID VALVE The tricuspid valve is normal in structure. There is moderate tricuspid regurgitation. PULMONIC VALVE The pulmonic valve is not well visualized. GREAT VESSELS The aortic root is normal in size. The IVC is normal in size and collapses >50% with inspiration. PERICARDIAL EFFUSION There is no pleural effusion. There is no pericardial effusion. <Conclusion> Biatrial enlargement. Normal LV size and systolic function. Mild concentric LVH. Moderate to severe . Moderate MR. Moderate TR. No vegetation seen.
[2017-03-16] MEDS: carBAMazepine Chew Tab 100 MG Chew Tab PO SCH ×2 (10:27→18:02)
[2017-03-16] MEDS ORDERED: Gadodiamide 287 MG/ML VIAL (15ML) IV ONE (11:00)
--- NOTE | 2017-03-16 11:02 | PN ---
DATE: 03/16/2017 SUBJECTIVE: The patient is seen sitting in a chair on telemetry. He is comfortable. He is anxious to get home. He denies any chest pain. He remains afebrile. CURRENT MEDICATIONS: Include aspirin, Desyrel 50 mg at bedtime, Lovenox 80 mg q. 12 hours, Crestor 1 0 mg daily, amlodipine 2.5 mg daily, meropenem, Plavix 75 mg daily, Tegretol 100 mg b.i.d., vancomyci n, and Zetia 10 mg daily. OBJECTIVE: GENERAL: He is a very elderly man who appears comfortable at the present time. VITAL SIGNS: His blood pressure 164/84 with a pulse of 82 in sinus, respirations are 16. He is afeb rile. HEENT: No JVD. Carotid upstrokes are diminished and delayed. CHEST: Bilateral scattered rhonchi. HEART: PMI displaced laterally with a mid to late peaking systolic murmur at the base radiating to t he carotids. ABDOMEN: Soft and nontender, normoactive bowel sounds. EXTREMITIES: No edema. DIAGNOSTIC DATA: Echocardiogram was reviewed and shows evidence of biatrial enlargement, normal LV s ize systolic function, mild concentric LVH, moderate to severe aortic stenosis with mild aortic insuf ficiency as well as moderate mitral and tricuspid regurgitation. Blood work from this morning is pen ding. Peak troponin was 0.55 with a followup of 0.22. IMPRESSION: 1. Sepsis, source unclear. No evidence of vegetation seen on transthoracic echocardiogram. 2. Aortic stenosis, moderate to severe, currently asymptomatic. 3. History of prior cerebrovascular accident. 4. Hypertension. 5. Probable coronary artery disease. 6. Anxiety disorder. RECOMMENDATIONS: His current medications will be continued. Amlodipine will be increased for better blood pressure control. Conservative management of his coronary disease would be most reasonable at this point given his other complex medical issues and age. We will continue to follow and make furt her recommendations as appropriate. Glynn Fall MD cc: [id number] TT: 03/16/2017 11:01:27 Confirmation # [id number] Dictation # [id number] krishna
--- NOTE | 2017-03-16 13:12 | MRI ---
PROCEDURE: MRI BRAIN WITH AND WITHOUT CONTRAST HISTORY: Rule out mass, rule out meningitis COMPARISON: Noncontrast head CT from 08/15/2016 TECHNIQUE: Multiplanar, multisequence MR images of the brain were obtained with and without intravenous contrast enhancement. FINDINGS: HEMORRHAGE: None DWI: No evidence of an acute or early subacute infarction. BRAIN PARENCHYMA: There is cystic encephalomalacia and gliosis in the right frontal and temporal lobes with a expected dilatation of the right lateral ventricle. There are moderate chronic microangiopathic change. There is no mass, mass effect or abnormal extra-axial fluid collection. ENHANCEMENT: No abnormal intracranial enhancement. VENTRICLES: A right trans parietal signed catheter terminates in the right lateral ventricle. There is persistent moderate ventricular dilatation. There is also moderate global parenchymal volume loss with enlargement of the cortical sulci. CRANIUM: There is normal bone marrow signal pattern. ORBITS: Grossly unremarkable. PARANASAL SINUSES/MASTOIDS: Clear VASCULAR SYSTEM: There are normal signal voids in the larger intracranial arteries. OTHER FINDINGS: None . IMPRESSION: 1. No acute intracranial abnormality. Specifically, no evidence of intracranial mass or extra-axial fluid collection. 2. The right trans parietal shunt catheter is stable in position. Persistent moderate ventricular dilatation. 3. Cystic encephalomalacia and gliosis in the right frontal and temporal lobes with ex vacuo dilatation of the right lateral ventricle. 4. Moderate chronic microangiopathic changes and moderate global parenchymal volume loss.
--- NOTE | 2017-03-16 19:22 | CP.PCM.PN ---
Subjective - Date & Time of Evaluation Date of Evaluation: 03/16/17 Time of Evaluation: 09:40 - Subjective Subjective: Comfortable in bed, not in distress, no fevers, no nausea, no abdominal pain, no diarrhea, no headache. Objective - Vital Signs/Intake and Output Vital Signs (last 24 hours): Temp Pulse Resp BP Pulse Ox 98.3 F 83 20 164/84 H 96 03/16/17 06:00 03/16/17 06:00 03/16/17 06:00 03/16/17 10:27 03/16/17 06:00 Intake and Output: 03/16/17 03/17/17 18:59 06:59 Intake Total 650 Output Total 250 Balance 400 - Medications Medications: Current Medications Acetaminophen (Tylenol 325mg Tab) 650 mg PO Q4H PRN PRN Reason: Fever >100.5 F Amlodipine Besylate (Norvasc) 5 mg PO DAILY [facility] Aspirin (Aspirin Chewable) 81 mg PO DAILY [facility] Last Admin: 03/16/17 10:27 Dose: 81 mg Carbamazepine (Tegretol) 100 mg PO BID [facility] Last Admin: 03/16/17 18:02 Dose: 100 mg Clopidogrel Bisulfate (Plavix) 75 mg PO DAILY [facility] Last Admin: 03/16/17 10:27 Dose: 75 mg Ezetimibe (Zetia) 10 mg PO DAILY [facility] Last Admin: 03/16/17 10:27 Dose: 10 mg Enoxaparin Sodium (Lovenox) 80 mg SC Q12H [facility] PRN Reason: Protocol Last Admin: 03/16/17 08:40 Dose: Not Given Home Med (Home Med) 1 unit PO DAILY [facility] Last Admin: 03/16/17 10:27 Dose: 1 unit Meropenem 1g/NS 100mL IVPB (Meropenem 1g/Ns 100ml Ivpb) 1 gm in 100 mls @ 100 mls/hr IVPB Q8 [facility] PRN Reason: Protocol Stop: 03/24/17 14:01 Last Admin: 03/16/17 13:41 Dose: 100 mls/hr Vancomycin HCl (Vancomycin 1gm) 1 gm in 250 mls @ 167 mls/hr IVPB 0000,1200 [facility] PRN Reason: Protocol Last Admin: 03/16/17 12:40 Dose: 167 mls/hr Trazodone HCl (Desyrel) 50 mg PO DAILY [facility] - Labs Labs: 03/15/17 10:00 03/15/17 09:30 PT 12.1 Seconds (9.9-11.8) H 03/13/17 22:27 INR 1.12 (0.93-1.08) H 03/13/17 22:27 APTT 27.3 Seconds (23.7-30.8) 03/13/17 22:27 - Constitutional Appears: Non-toxic, No Acute Distress - Head Exam Head Exam: NORMAL INSPECTION - ENT Exam ENT Exam: Mucous Membranes Moist - Neck Exam Neck Exam: absent: Lymphadenopathy, Meningismus - Respiratory Exam Respiratory Exam: Decreased Breath Sounds - Cardiovascular Exam Cardiovascular Exam: +S1, +S2 - GI/Abdominal Exam GI & Abdominal Exam: Soft. 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 Roche
[2017-03-16] MEDS ORDERED: Alum-Mag Hydrox-Simethicone Susp (30 mL) PO ONE (23:51)
--- NOTE | 2017-03-17 06:39 | CP.PCM.PN ---
Subjective - Date & Time of Evaluation Date of Evaluation: 03/17/17 Time of Evaluation: 06:34 - Subjective Subjective: S:Patient was seen at bedside for upset stomach. Has no complaints now. Earlier I had ordered mylanta for his complaint of upset stomach. Denies chest pain, sob, nausea. Medical record was reviewed. O: Last Vital Signs 3 Temp 98.5 F 03/17/17 00:01 Pulse 80 03/17/17 02:00 Resp 20 03/17/17 00:01 BP 165/90 H 03/17/17 00:01 Pulse Ox 97 03/17/17 00:01 Awake, alert, not in distress. ABD: Not distended. A:Upset stomach. P:Mylanta 30 CC PO x 1. Objective - Vital Signs/Intake and Output Vital Signs (last 24 hours): Temp Pulse Resp BP Pulse Ox 98.5 F 80 20 165/90 H 97 03/17/17 00:01 03/17/17 02:00 03/17/17 00:01 03/17/17 00:01 03/17/17 00:01 Intake and Output: 03/16/17 03/17/17 18:59 06:59 Intake Total 650 420 Output Total 250 490 Balance 400 -70 - Medications Medications: Current Medications Acetaminophen (Tylenol 325mg Tab) 650 mg PO Q4H PRN PRN Reason: Fever >100.5 F Amlodipine Besylate (Norvasc) 5 mg PO DAILY [facility] Aspirin (Aspirin Chewable) 81 mg PO DAILY [facility] Last Admin: 03/16/17 10:27 Dose: 81 mg Carbamazepine (Tegretol) 100 mg PO BID [facility] Last Admin: 03/16/17 18:02 Dose: 100 mg Clopidogrel Bisulfate (Plavix) 75 mg PO DAILY [facility] Last Admin: 03/16/17 10:27 Dose: 75 mg Ezetimibe (Zetia) 10 mg PO DAILY [facility] Last Admin: 03/16/17 10:27 Dose: 10 mg Enoxaparin Sodium (Lovenox) 80 mg SC Q12H [facility] PRN Reason: Protocol Last Admin: 03/16/17 20:30 Dose: 80 mg Home Med (Home Med) 1 unit PO DAILY [facility] Last Admin: 03/16/17 10:27 Dose: 1 unit Trazodone HCl (Desyrel) 50 mg PO DAILY [facility] Last Admin: 03/16/17 20:30 Dose: 50 mg - Labs Labs: 03/15/17 10:00 03/15/17 09:30 PT 12.1 Seconds (9.9-11.8) H 03/13/17 22:27 INR 1.12 (0.93-1.08) H 03/13/17 22:27 APTT 27.3 Seconds (23.7-30.8) 03/13/17 22:27
[2017-03-17 06:47] VITALS: BP 170/87; TEMP 98.4; O2SAT 98
[2017-03-17 06:48] VITALS: PULSE 77
--- NOTE | 2017-03-17 08:39 | DS ---
This is an 86-year-old male who was coming into the hospital. He was admitted to the hospital with a non-ST elevation [place]. The patient had improvement of his symptoms. He had a fever, but no specific cause was found out. He had blood cultures which were negative. CT abdomen did not show any specifi c abnormalities. He had a mild elevation of his white count at 13.1. I do not believe he had sepsis . The fever resolved. He has no complaints of any chest pain, no shortness of breath, no headaches, no dizziness. PHYSICAL EXAMINATION: VITAL SIGNS: Temperature is 98.4, pulse of 85, blood pressure is 170/87, respirations 20, O2 saturat ion 98%. GENERAL: The patient comfortable, in no acute distress. HEENT: Anicteric sclerae. Moist mucosa. NECK: No JVD or adenopathy. CARDIAC: S1/S2. No murmurs. No rubs. Regular. RESPIRATORY: Clear to auscultation bilaterally. No wheezes, rales, or rhonchi. Good air entry. ABDOMEN: Bowel sounds are positive, soft, nontender, and nondistended. EXTREMITIES: No edema. Has 1+ pulses. ASSESSMENT: 1. Non-ST elevation myocardial infarction. 2. Fever, resolved. 3. Aortic stenosis. 4. Seizures. 5. Ventriculoperitoneal shunt. 6. Coronary artery disease. 7. Hypertension. PLAN: The patient is currently comfortable, is on aspirin. The patient was on Lovenox for anticoagu lation for his myocardial infarction. This will be discontinued. He is on Plavix. He is going to c ontinue his Plavix. The patient is not on beta blockers because of a bradycardia. He is going to co ntinue his aspirin at home. He is discharged home today. FOLLOWUP: 1. Follow up with Dr. Monet in 1-2 weeks. 2. Follow up with Dr. Pathak in 1-2 weeks. Stu Lara MD cc: [id number] TT: 03/17/2017 08:38:51 en
== END 2017-03-17 09:58 | disposition home or self-care (01) | DRG 281 ==
LOC: ED 22:18 → ERH 03-14 01:19 → 2RNO 03-14 02:29
PROVIDERS: ADMIT Internal Medicine Medical Oncology; ATTEND Internal Medicine Medical Oncology
DX: I21.4 Non-ST elevation (NSTEMI) myocardial infarction (principal); R65.10 Systemic inflammatory response syndrome (SIRS) of non-infectious origin without acute organ dysfunction; I44.1 Atrioventricular block, second degree; F03.90 Unspecified dementia, unspecified severity, without behavioral disturbance, psychotic disturbance, mood disturbance, and anxiety; D64.9 Anemia, unspecified; E78.5 Hyperlipidemia, unspecified; I10 Essential (primary) hypertension; F41.9 Anxiety disorder, unspecified; G40.909 Epilepsy, unspecified, not intractable, without status epilepticus; I25.10 Atherosclerotic heart disease of native coronary artery without angina pectoris; K21.9 Gastro-esophageal reflux disease without esophagitis; R50.9 Fever, unspecified; D72.829 Elevated white blood cell count, unspecified; I08.3 Combined rheumatic disorders of mitral, aortic and tricuspid valves; Z79.82 Long term (current) use of aspirin; Z79.899 Other long term (current) drug therapy; Z86.73 Personal history of transient ischemic attack (TIA), and cerebral infarction without residual deficits; Z98.2 Presence of cerebrospinal fluid drainage device; M46.92 Unspecified inflammatory spondylopathy, cervical region; Z87.891 Personal history of nicotine dependence; Z88.8 Allergy status to other drugs, medicaments and biological substances